=== PATIENT | male | born 1980 | race Caucasian/White ===

== ENCOUNTER 2024-08-30 12:05 | Emergency (ER) | payer OTHER, SELFPAY ==
[2024-08-30] MEDS ORDERED: Fluorescein Opthalmic Strip ONE (12:09)
[2024-08-30] MEDS ORDERED: Tetracaine 0.5% PF 4 ML BOT ONE (12:10)
[2024-08-30] MEDS ORDERED: Boostrix 0.5 ML (Tdap) VIAL (>/=7 yrs of age) ONE (12:32)
== END 2024-08-30 12:38 | disposition home or self-care (01) ==
LOC: BURERS 12:05
DX: T15.01XA Foreign body in cornea, right eye, initial encounter (principal); F17.210 Nicotine dependence, cigarettes, uncomplicated
CPT/HCPCS: 90471; 90715